=== PATIENT | female | born 1985 | race Caucasian/White ===

== ENCOUNTER 2023-06-14 16:24 | Inpatient (IN) ==
[2023-06-14 18:22] LABS: ABS Eosinophils 0.2 10^3/uL (0.0-0.5); ABS Lymphocytes 2.9 10^3/uL (1.0-4.8); ABS Monocytes 1.1 10^3/uL (0.0-0.9); ABS Neutrophils 4.9 10^3/uL (1.5-7.6); ABS Nucleated RBC 0.01 10^3/ul; Eosinophil % 2.7 %; Hematocrit 40.6 % (35-45); Hemoglobin 13.6 g/dL (11.5-14.3); Lymphocyte % 31.3 %; Mean Corpuscular Hgb Conc 33.4 g/dL (31-36); Mean Corpuscular Volume 83.8 fL (80-97); Mean Platelet Volume 7.5 fL (7.5-11.2); Nucleated Red Blood Cells % 0.1 /100 WBC (0.0-0.4); Platelet Count 295 10^3/uL (150-450); Red Blood Count 4.84 10^6/uL (3.63-4.92); Red Cell Distribution Width 13.9 % (12-17); White Blood Count 9.2 10^3/uL (3.8-11.8)
[2023-06-14 18:41] LABS: ALT 18 U/L (7-52); AST 19 U/L (13-39); Albumin 3.7 g/dL (3.2-5.2); Albumin/Globulin Ratio 1.4 (1-3); Alkaline Phosphatase 53 U/L (35-149); Anion Gap 7 mmol/L (2-16); Blood Urea Nitrogen 12 mg/dL (6-24); CO2 Carbon Dioxide 28 mmol/L (22-32); Calcium 8.9 mg/dL (8.6-10.3); Chloride 106 mmol/L (101-111); Creatinine, Serum 1.01 mg/dL (0.51-0.95); Globulin 2.7 g/dL (2-4); Glucose 108 mg/dL (70-100); Potassium 4.5 mmol/L (3.5-5.0); Sodium 141 mmol/L (135-145); Total Protein 6.4 g/dL (6.4-8.9); eGFR CKD-EPI 73.5 (>60)
[2023-06-14 19:29] LABS: Acetaminophen < 15 mcg/mL; Alcohol, S < 13 mg/dL (<13); Salicylate < 2.50 mg/dL (<30)
[2023-06-14 19:43] LABS: TSH Ultra Thyroid Stim Horm 1.09 mcIU/mL (0.34-5.60)
[2023-06-14 22:40] LABS: Urine Appearance Turbid; Urine Bilirubin Negative (Negative); Urine Blood Negative (Negative); Urine Color Yellow; Urine Glucose Negative (Negative); Urine Ketones Negative (Negative); Urine Nitrite Negative (Negative); Urine Protein 1+(30 mg/dL) (Negative); Urine Specific Gravity 1.024 (1.002-1.030); Urine Urobilinogen Negative (Negative)
[2023-06-14 22:45] LABS: Urine Bacteria Absent (Absent); Urine Red Blood Cell Absent (Absent); Urine Squamous Epithelial Cell Present (Absent); Urine Transitional Epithelial Present (Absent); Urine White Blood Cell 3+(>20/hpf) (Absent)
[2023-06-14 23:00] LABS: Urine Benzodiazepine Screen None Detected (None Detect); Urine Cannabinoids Screen None Detected (None Detect); Urine Opiates Screen None Detected (None Detect)
[2023-06-14] MEDS ORDERED: Nicotine PATCH 21 MG/24 HR PATCH TRANSDERM ONE (23:41)
[2023-06-14] MEDS ORDERED: Al Hydrox/Mg Hydrox/Simet LIQ 30 ML UDC PO PRN (23:58)
[2023-06-15] MEDS: Pindolol 10 mg TAB (NF) PO SCH ×3 (01:23→21:10)
[2023-06-15 08:03] LABS: Cholesterol 119 mg/dL; HDL Cholesterol 28.1 mg/dL; LDL Cholesterol 63 mg/dL; Triglycerides 140 mg/dL
[2023-06-15] MEDS ORDERED: Vitamin THERAPEUTIC TAB PO SCH (09:00)
[2023-06-15] MEDS: Nicotine PATCH 21 MG/24 HR PATCH TRANSDERM SCH (11:35)
[2023-06-15] MEDS: Vitamin THERAPEUTIC TAB PO SCH (11:55)
[2023-06-15] MEDS ORDERED: Venlafaxine XR 75 mg ONE (13:41)
[2023-06-16] MEDS: Vitamin THERAPEUTIC TAB PO SCH (09:59)
[2023-06-16] MEDS: Venlafaxine XR 75 mg PO SCH (13:30)
[2023-06-16] MEDS: Nicotine PATCH 21 MG/24 HR PATCH TRANSDERM SCH (13:31)
[2023-06-16] MEDS: Pindolol 10 mg TAB (NF) PO SCH (22:30)
[2023-06-16] MEDS: Al Hydrox/Mg Hydrox/Simet LIQ 30 ML UDC PO PRN (22:31)
[2023-06-17] MEDS: Nicotine PATCH 21 MG/24 HR PATCH TRANSDERM SCH (08:58)
[2023-06-17] MEDS: Venlafaxine XR 75 mg PO SCH (08:58)
[2023-06-17] MEDS: Vitamin THERAPEUTIC TAB PO SCH (08:58)
[2023-06-17] MEDS: Nicotine GUM 2MG FRUIT FLAVOR PO PRN (09:00)
[2023-06-17 10:54] LABS: HCG Pregnancy < 0.60 mIU/mL
[2023-06-17] MEDS: Al Hydrox/Mg Hydrox/Simet LIQ 30 ML UDC PO PRN (13:48)
[2023-06-17 16:33] LABS: Urine Appearance Clear; Urine Bilirubin Negative (Negative); Urine Blood Negative (Negative); Urine Color Colorless; Urine Glucose Negative (Negative); Urine Ketones Negative (Negative); Urine Nitrite Negative (Negative); Urine Protein Negative (Negative); Urine Specific Gravity 1.003 (1.002-1.030); Urine Urobilinogen Negative (Negative)
[2023-06-17] MEDS: Pindolol 10 mg TAB (NF) PO SCH (22:13)
[2023-06-18] MEDS: Vitamin THERAPEUTIC TAB PO SCH (09:51)
[2023-06-18] MEDS: Venlafaxine XR 75 mg PO SCH (09:52)
[2023-06-18] MEDS: Nicotine PATCH 21 MG/24 HR PATCH TRANSDERM SCH (09:52)
[2023-06-18] MEDS: Nicotine GUM 2MG FRUIT FLAVOR PO PRN (13:53)
[2023-06-18] MEDS: Pindolol 10 mg TAB (NF) PO SCH (20:16)
[2023-06-18] MEDS ORDERED: Testosterone Cypionate (NF) 200 MG/ML VIAL IM SCH ×3 (21:00)
[2023-06-19] MEDS: Nicotine PATCH 21 MG/24 HR PATCH TRANSDERM SCH (09:14)
[2023-06-19] MEDS: Vitamin THERAPEUTIC TAB PO SCH (09:15)
[2023-06-19] MEDS: Venlafaxine XR 75 mg PO SCH (09:15)
[2023-06-19] MEDS: Nicotine GUM 2MG FRUIT FLAVOR PO PRN (09:16)
[2023-06-19 09:29] VITALS: BP 113/62
== END 2023-06-19 14:42 | disposition home or self-care (01) | DRG 753 ==
LOC: ED 16:24 → EDHOLD 23:19 → BSU 06-15 00:10
PROVIDERS: ADMIT Psychiatry & Neurology Addiction Psychiatry; ATTEND Psychiatry & Neurology Psychiatry

== ENCOUNTER 2023-07-08 23:41 | Inpatient (IN) ==
[2023-07-09 00:38] LABS: ABS Basophils 0.1 10^3/uL (0.0-0.1); ABS Eosinophils 0.1 10^3/uL (0.0-0.5); ABS Neutrophils 8.1 10^3/uL (1.5-7.6); ABS Nucleated RBC 0.01 10^3/ul; Hematocrit 44.7 % (35-45); Lymphocyte % 24.5 %; Mean Corpuscular Hemoglobin 27.8 pg (27-33); Mean Corpuscular Hgb Conc 33.7 g/dL (31-36); Mean Corpuscular Volume 82.6 fL (80-97); Mean Platelet Volume 7.7 fL (7.5-11.2); Nucleated Red Blood Cells % 0.1 /100 WBC (0.0-0.4); Platelet Count 355 10^3/uL (150-450); Red Cell Distribution Width 14.1 % (12-17); White Blood Count 12.3 10^3/uL (3.8-11.8)
[2023-07-09 00:44] LABS: Urine Appearance Cloudy; Urine Bilirubin Negative (Negative); Urine Blood 1+ (Negative); Urine Color Straw; Urine Glucose Negative (Negative); Urine Ketones Negative (Negative); Urine Nitrite Negative (Negative); Urine Protein Negative (Negative); Urine Specific Gravity 1.004 (1.002-1.030); Urine Urobilinogen Negative (Negative)
[2023-07-09 00:47] LABS: Urine Bacteria 1+ (Absent); Urine Red Blood Cell Trace(0-2/hpf) (Absent); Urine Squamous Epithelial Cell Present (Absent); Urine White Blood Cell Trace(0-5/hpf) (Absent)
[2023-07-09 00:57] LABS: ALT 19 U/L (7-52); AST 18 U/L (13-39); Albumin 4.1 g/dL (3.2-5.2); Albumin/Globulin Ratio 1.3 (1-3); Alkaline Phosphatase 64 U/L (35-149); Anion Gap 11 mmol/L (2-16); Blood Urea Nitrogen 8 mg/dL (6-24); CO2 Carbon Dioxide 27 mmol/L (22-32); Calcium 9.1 mg/dL (8.6-10.3); Chloride 100 mmol/L (101-111); Globulin 3.1 g/dL (2-4); Glucose 96 mg/dL (70-100); Potassium 4.2 mmol/L (3.5-5.0); Sodium 138 mmol/L (135-145); Total Protein 7.2 g/dL (6.4-8.9); eGFR CKD-EPI 74.4 (>60)
[2023-07-09 01:01] LABS: Urine Benzodiazepine Screen None Detected (None Detect); Urine Cannabinoids Screen None Detected (None Detect); Urine Opiates Screen None Detected (None Detect)
[2023-07-09 01:04] LABS: HCG Pregnancy < 0.60 mIU/mL
[2023-07-09 01:07] LABS: Acetaminophen < 15 mcg/mL; Alcohol, S 73 mg/dL (<13); Salicylate < 2.50 mg/dL (<30)
[2023-07-09 01:22] LABS: TSH Ultra Thyroid Stim Horm 3.81 mcIU/mL (0.34-5.60)
[2023-07-09] MEDS ORDERED: Al Hydrox/Mg Hydrox/Simet LIQ 30 ML UDC PO PRN (03:18)
[2023-07-09] MEDS ORDERED: chlorproMAZINE TAB 50 MG Q6H PRN AGITATION PO (03:20)
[2023-07-09] MEDS: Vitamin THERAPEUTIC TAB PO SCH (10:32)
[2023-07-09] MEDS: Venlafaxine XR 75 mg PO SCH (10:36)
[2023-07-09] MEDS ORDERED: Testosterone Cypionate (NF) 200 MG/ML VIAL IM ONE ×2 (11:18→20:00)
[2023-07-09] MEDS: Nicotine PATCH 21 MG/24 HR PATCH TRANSDERM SCH (16:46)
[2023-07-09] MEDS: Nicotine GUM 4MG FRUIT FLAVOR PO PRN (18:30)
[2023-07-09] MEDS: PINDOLOL 10 MG PO SCH (21:14)
[2023-07-10 08:26] LABS: HDL Cholesterol 31.8 mg/dL
[2023-07-10] MEDS: Vitamin THERAPEUTIC TAB PO SCH (10:24)
[2023-07-10] MEDS: Nicotine PATCH 21 MG/24 HR PATCH TRANSDERM SCH (10:24)
[2023-07-10] MEDS: Venlafaxine XR 75 mg PO SCH (10:24)
[2023-07-10] MEDS: PINDOLOL 10 MG PO SCH (21:35)
[2023-07-11] MEDS: Nicotine PATCH 21 MG/24 HR PATCH TRANSDERM SCH ×2 (09:07→16:07)
[2023-07-11] MEDS: Venlafaxine XR 75 mg PO SCH ×2 (09:07→16:06)
[2023-07-11] MEDS: Vitamin THERAPEUTIC TAB PO SCH (09:08)
[2023-07-11] MEDS: Nicotine GUM 4MG FRUIT FLAVOR PO PRN ×2 (16:07→19:33)
[2023-07-11] MEDS: PINDOLOL 10 MG PO SCH (21:00)
[2023-07-12] MEDS: Venlafaxine XR 75 mg PO SCH (08:51)
[2023-07-12] MEDS: Nicotine PATCH 21 MG/24 HR PATCH TRANSDERM SCH (08:52)
[2023-07-12] MEDS: PINDOLOL 10 MG PO SCH (21:08)
[2023-07-12] MEDS: Nicotine GUM 4MG FRUIT FLAVOR PO PRN (21:09)
[2023-07-13] MEDS: Nicotine PATCH 21 MG/24 HR PATCH TRANSDERM SCH (10:45)
[2023-07-13] MEDS: Venlafaxine XR 75 mg PO SCH (10:45)
[2023-07-13] MEDS: Vitamin THERAPEUTIC TAB PO SCH (10:46)
[2023-07-13] MEDS: PINDOLOL 10 MG PO SCH (20:21)
[2023-07-13] MEDS: Nicotine GUM 4MG FRUIT FLAVOR PO PRN (23:13)
[2023-07-14] MEDS: Venlafaxine XR 75 mg PO SCH (09:33)
[2023-07-14] MEDS: Nicotine GUM 4MG FRUIT FLAVOR PO PRN (09:34)
[2023-07-14] MEDS: Nicotine PATCH 21 MG/24 HR PATCH TRANSDERM SCH (09:35)
[2023-07-14] MEDS: Vitamin THERAPEUTIC TAB PO SCH ×2 (19:19→20:49)
[2023-07-14] MEDS: PINDOLOL 10 MG PO SCH (20:25)
[2023-07-15] MEDS: Nicotine PATCH 21 MG/24 HR PATCH TRANSDERM SCH (09:07)
[2023-07-15] MEDS: Venlafaxine XR 75 mg PO SCH (09:10)
[2023-07-15] MEDS: Nicotine GUM 4MG FRUIT FLAVOR PO PRN ×3 (09:58→22:37)
[2023-07-15] MEDS: Vitamin THERAPEUTIC TAB PO SCH (10:04)
[2023-07-15 20:43] VITALS: BP 132/74
[2023-07-15] MEDS ORDERED: CMCS:Pindolol 10 mg TAB (NF) PO SCH (21:00)
[2023-07-16] MEDS: Nicotine PATCH 21 MG/24 HR PATCH TRANSDERM SCH (08:50)
[2023-07-16] MEDS: Venlafaxine XR 75 mg PO SCH (08:52)
== END 2023-07-16 11:09 | disposition home or self-care (01) | DRG 752 ==
LOC: ED 23:41 → EDHOLD 07-09 02:50 → BSU 07-09 04:42
PROVIDERS: ADMIT Student in an Organized Health Care Education/Training Program; ATTEND Student in an Organized Health Care Education/Training Program